=== PATIENT | male | born 1990 | race African-American/Black ===

== ENCOUNTER 2016-04-22 15:42 | Emergency (ER) ==
[2016-04-22] MEDS ORDERED: DIPHTHERIA/TETANUS ADULT IM ONE (16:06)
[2016-04-22] MEDS ORDERED: XYLOCAINE-MPF 1% INJ ONE (16:06)
[2016-04-22] MEDS ORDERED: ULTRAM PO ONE (16:06)
--- NOTE | 2016-04-22 17:20 | PROVIDER DOCUMENTATION ---
HPI-General Adult - General Chief Complaint: Laceration[s] Stated Complaint: RT POINTER FINGER INJURY Time Seen by Provider: 04/22/16 15:57 Source: patient Allergies/Adverse Reactions: Patient Allergies Allergy/AdvReac Type Severity Reaction Status Date / Time ibuprofen [From Motrin] Allergy ANAPHYLAXIS Verified 04/22/16 16:32 - History of Present Illness -Gen Adult Nature of Presenting Problems: 26 y/o BM with no significant PMH presents with a superficial R index finger laceration. He states the injury occurred approximately 12:30 AM 04/22/2016 while he accidentally brushed his finger against a nail sticking out on his porch. He does not recall his last tetanus booster. He is a daily smoker, but denies EtOH and illicit drug usage. He is in no acute distress and has no other complaints today. Location of Pain/Injury: reports: hand(s) Quality of Pain: reports: sharp Severity: reports: moderate Onset/Duration: reports: last night Timing: reports: still present Similar Symptoms Previously?: No Recently seen or treated by another doctor?: No Review of Systems - Adult - REVIEW OF SYSTEMS - ADULT Constitutional: reports: no symptoms reported. denies: chills, fever Eyes: reports: no symptoms reported. denies: discharge, dry eyes Ears, Nose, Mouth & Throat: reports: no symptoms reported. denies: ear discharge, ear pain Cardiovascular: reports: no symptoms reported. denies: chest pain, edema Respiratory: reports: no symptoms reported. denies: chronic cough, cough Gastrointestinal: reports: no symptoms reported. denies: abdominal pain, hematemesis Genitourinary: reports: no symptoms reported. denies: dysuria, discharge Musculoskeletal: reports: no symptoms reported. denies: bone pain, back pain Integumentary: reports: see HPI. denies: mole changes, nail changes Neurological: reports: no symptoms reported. denies: ataxia, dizziness/vertigo Psychiatric: reports: no symptoms reported. denies: anxiety, anti-depressant use Endocrine: reports: no symptoms reported Hematologic/Lymphatic: reports: no symptoms reported Allergic/Immunologic: reports: no symptoms reported All Other Systems: Reviewed and Negative Past History - Adult - PAST MEDICAL HISTORY-ADULT Review of Records: reports: Old Records Reviewed, Nursing Assessment Review, Medications Reviewed, Social history reviewed & non-contributory. Major Childhood Illnesses: reports: denies history Cardiovascular: reports: denies history Respiratory: reports: denies history Gastrointestinal: reports: denies history Obstetrical/Gynecological: reports: denies history Genitourinary: reports: denies history Musculoskeletal: reports: denies history Neurological: reports: denies history Endocrine/Immune: reports: denies history Other Conditions: reports: denies history - PRIOR SURGERIES/PROCEDURES Surgical/Procedure History: reports: none - FAMILY HISTORY Family History: reviewed, not pertinent Physical Exam-General - PHYSICAL EXAM-ADULT Initial Vital Signs Reviewed: Yes - CONSTITUTIONAL General Appearance: appears well, alert, no apparent distress. negative: lethargic, slow to respond - EYES Eyes: PERRL/EOMI, pink conjunctivae - HEAD, EARS, NOSE, MOUTH & THROAT HENMT: normocephalic/atraumatic, moist mucous membranes, normal ENT inspection - NECK Neck: non-tender, full range of motion, normal inspection - RESPIRATORY Respiratory: chest non-tender, lungs clear, normal breath sounds - CARDIOVASCULAR Cardiovascular: normal peripheral pulses, regular rate, rhythm, no edema - GASTROINTESTINAL (ABDOMEN) Abdominal Exam: normal bowel sounds, non tender, soft - LYMPHATIC Lymphatic: no adenopathy - MUSCULOSKELETAL Back Exam: normal inspection, no CVA tenderness, no vertebral tenderness Extremity: normal range of motion, non-tender, normal gait - SKIN Integumentary: normal turgor, warm/dry, laceration(s), tenderness - NEUROLOGIC Neurologic: grossly normal, no motor/sensory deficits - PSYCHIATRIC Psych/Mental Status: normal mood/affect, normal thought content, normal thought process, oriented x 3 Progress - PLAN OF CARE/RESULTS Progress/Plan/Lab Results: Orders Category Date Time Status Suture Tray Set-Up DIRECTED Care 04/22/16 16:06 Active Diphtheria/Tetanus Adult Med 04/22/16 16:06 Discontinued 0.5 ml IM .ONCE ONE Lidocaine 1% Pf [Xylocaine-Mpf 1%] Med 04/22/16 16:06 Discontinued See Dose Instructions INJ NOW ONE Tramadol [Ultram] Med 04/22/16 16:06 Discontinued 50 mg PO NOW ONE Vital Signs Temp Pulse Resp BP Pulse Ox 04/22/16 15:52 97.9 F 72 18 153/79 100 ibuprofen [From Motrin] Allergy (Verified 04/22/16 16:32) ANAPHYLAXIS No Home Medications 12/17/15 Pt states that he is having some difficulty with flexion at PIP joint. I did not see any tendon injury but I will have him f/u c ortho. He is in agreement. Procedures - LACERATION/WOUND REPAIR/FB Right Finger Wound Location: Other: 2nd digit (posterior) Wound Length: 3cm Wound's Depth, Shape: superficial, irregular, flap Wound Explored/Foreign Body: clean Irrigated with Saline?: Yes Prepped with: Hibiclens, Kit Utilized, Sterile Drapes Applied Anesthetic: 1%, Lidocaine/Xylocaine Volume of Anesthetic (ml's): 6 Wound Debrided: minimal Wound Repaired with: Sutures Suture Size/Type: 4.0, Non-Absorbable, Nylon Number of Sutures: 3 Layer Closure?: No Sterile Dressing Applied?: Yes Splint Applied?: No Sling Applied?: No Post Procedure Neurovascular Exam: Intact Procedure Comment: Very loose approximation give age of wound Departure - Departure Time of Disposition Order: 17:29 DIAGNOSIS: Finger laceration Qualifiers: Encounter type: initial encounter Qualified Code(s): S61.219A - Laceration without foreign body of unspecified finger without damage to nail, initial encounter Disposition: HOME 01 Certified Medical Emergency: Emergent Condition: Good Additional Instructions: Take medication as prescribed. Follow up with an orthopedist or the ER in 5-7 days for removal. ED Follow Up Instructions: You have been treated by a care provider in the Emergency Department. These instructions are being provided to you so you can have an understanding of how to care for yourself upon discharge. Upon discharge from the Emergency Department, you are responsible for making arrangements for follow-up care by a physician of your choice. Take all prescribed medications as directed. Return to the Emergency Department immediately for any new or worsening symptoms. You may call the Physician Referral phone number at [phone] to obtain a list of Physicians who are taking new patients. Prescriptions: Cephalexin [Keflex] 500 mg PO Q6HR #28 capsule Referrals: None,PCP [Primary Care Provider] - Forms: Return to School/Parent Work Attestation - Physician/ Mid-level Attestation Patient care was provided by Mid-level provider (INDUCTION MACHINE OPERATOR/PA):: Yes Mid-level provider:: Nathen Tang Mid-level documentation review:: The Mid-level provider documentation, treatment plan and medical decision making was reviewed by the physician who agrees with all treatment and medical decision making by the MLP.
[2016-04-22 17:34] VITALS: BP 162/88
== END 2016-04-22 17:38 | disposition home or self-care (01) ==
LOC: ED 15:42
DX: S61.210A Laceration without foreign body of right index finger without damage to nail, initial encounter (principal); M79.644 Pain in right finger(s); F17.210 Nicotine dependence, cigarettes, uncomplicated; Z23 Encounter for immunization; W45.0XXA Nail entering through skin, initial encounter
CPT/HCPCS: 90471; 90714